=== PATIENT | female | born 1980 | race Hispanic/Latino ===

== ENCOUNTER → 2020-06-22 14:09 | Outpatient (CLI) | payer SELFPAY ==
--- NOTE | 2020-06-22 | DI.US.S_ITS ---
PROCEDURE: US ABDOMEN COMPLETE INDICATIONS: FLANK PAIN TECHNIQUE: Real-time scanning was performed of the abdominal and retroperitoneal organs, with image documentation. COMPARISON: None. FINDINGS: Liver: Liver is normal in size and homogeneous in echotexture. Gallbladder: No gallstones identified. Normal gallbladder wall. No pericholecystic fluid. Negative sonographic Mera sign. Biliary ducts: Intrahepatic bile ducts are non-dilated. Extrahepatic bile duct caliber measures 4.0 mm. Normal is 6-7 mm or less in diameter, or 10 mm or less post-cholecystectomy. Pancreas: Visualized portions of the pancreas are sonographically normal. Spleen: Spleen is normal in size and homogeneous in echotexture. Kidneys: Kidneys are normal in size and echotexture. Right kidney measures 10.6 cm long; left kidney measures 10.9 cm long. No hydronephrosis or nephrolithiasis. No solid masses. Small complex cyst involving the inferior pole of the right kidney measuring 7 mm. Aorta: Visualized aorta is normal in caliber at less than 3 cm. Iliacs: Proximal common iliac arteries are normal in caliber at less than 2.5 cm. IVC: Intrahepatic inferior vena cava is patent. Miscellaneous: No free abdominal fluid. IMPRESSION: 1. No source for right flank pain identified. 2. Bosniak 2 F complex cyst involving the inferior pole of the right kidney. 3 month follow-up ultrasound recommended. Dictated by: Brandon Kiran [facility] Interpreted: Parveen Mckeon MD on 06/22/2020 at 16:11 Approved by: Parveen Mckeon M.D. on 06/22/2020 at 17:12
--- NOTE | 2020-06-22 | DI.US.S_ITS ---
PROCEDURE: US PELVIC COMPLETE INDICATIONS: FLANK PAIN TECHNIQUE: Real-time scanning was performed of the pelvic organs, with image documentation. Additional endovaginal scanning was necessary due to incomplete visualization of the adnexal and endometrial structures by transabdominal scanning. COMPARISON: None. FINDINGS: Transabdominal scanning: Limited scanning through the kidneys shows no hydronephrosis. No pathologic free abdominal or pelvic fluid. Endovaginal scanning: Uterus: Uterus is normal in size at 8.0 x 4.3 x 3.8 cm. The endometrium measures 14 mm in combined thickness. Echogenic focus involving the posterior myometrium likely a small intramural fibroid measuring 4 mm. Ovaries: Ovary measures 3.2 x 1.7 x 2.6 cm on the right and 2.8 x 2.0 x 2.6 cm on the left. Complex mass involves the right ovary measuring 1.6 x 1.4 x 1.6 cm. Complex mass involves the left ovary measuring 1.7 x 1.3 x 1.7 cm. IMPRESSION: 1. Bilateral complex masses involving the ovaries likely representing small hemorrhagic ovarian cyst versus bilateral endometriomas. Recommend short-term follow-up pelvic ultrasound in 6-12 weeks to assess for temporal resolution. 2. Probable posterior 4 mm intramural fibroid. Dictated by: Brandon Kiran [facility] Interpreted: Parveen Mckeon MD on 06/22/2020 at 16:04 Approved by: Parveen Mckeon M.D. on 06/22/2020 at 17:12
== END ==
PROVIDERS: PCP Family Medicine; Referring Provider Family Medicine; Visit Provider Family Medicine
DX: R10.9 Unspecified abdominal pain (principal); N28.1 Cyst of kidney, acquired; N83.9 Noninflammatory disorder of ovary, fallopian tube and broad ligament, unspecified
CPT/HCPCS: 76700; 76830; 76856

== ENCOUNTER → 2020-08-07 09:46 | Outpatient (CLI) | payer SELFPAY ==
--- NOTE | 2020-08-07 | DI.US.S_ITS ---
PROCEDURE: US PELVIC COMPLETE INDICATIONS: ABDOMINAL PAIN TECHNIQUE: Real-time scanning was performed of the pelvic organs, with image documentation. Additional endovaginal scanning was necessary due to incomplete visualization of the adnexal and endometrial structures by transabdominal scanning. COMPARISON: [facility], , US ABDOMEN COMPLETE, 08/07/2020, 11:08. [facility], , US PELVIC COMPLETE, 06/22/2020, 15:12. FINDINGS: Transabdominal scanning: No pathologic free abdominal or pelvic fluid. On the accompanying abdominal ultrasound, the kidneys demonstrate a normal appearance. Endovaginal scanning: Uterus: Uterus is normal in size at 8.7 x 4.9 x 3.2 cm. The endometrium measures 8 mm in combined thickness. Along the right posterior aspect of the uterus, there is an intramural fibroid that measures 6 mm. A small amount of free fluid can be seen within the cervical canal. Incidental note is made of nabothian cysts. There is also a cervical region cyst seen with internal calcifications that measures up to 5 mm. Ovaries: The right ovary measures 3.4 x 1.5 x 1.4 cm. The left ovary measures 3.3 x 3.2 x 1.9 cm and demonstrates a complex cyst, with thickened, hypervascular martinez that measures 2.3 x 2 x 1.6 cm. On the prior pelvic ultrasound, this measured 1.7 x 1.3 x 1.7 cm. The ovaries otherwise have a normal sonographic appearance. No adnexal masses are seen. IMPRESSION: A left ovarian complex cyst is again seen, which is mildly increased in size compared to the prior examination. Please consider an additional ultrasound follow-up in 6-12 weeks for further evaluation. Dictated by: Kerwin Carvalho M.D. on 08/07/2020 at 12:31 Approved by: Kerwin Carvalho M.D. on 08/07/2020 at 12:34
--- NOTE | 2020-08-07 | DI.US.S_ITS ---
PROCEDURE: US ABDOMEN COMPLETE INDICATIONS: UNSPECIFIED ABDOMINAL PAIN TECHNIQUE: Real-time scanning was performed of the abdominal and retroperitoneal organs, with image documentation. COMPARISON: [facility], , US PELVIC COMPLETE, 08/07/2020, 11:30. [facility], US, US ABDOMEN COMPLETE, 06/22/2020, 14:55. FINDINGS: Liver: Liver is normal in size and homogeneous in echotexture. Gallbladder: The gallbladder is partly contracted at the time of this study, which limits its evaluation. No findings of gallstones or sludge are seen. The gallbladder wall is not thickened, measuring 3 mm or less. No specific pericholecystic fluid is seen. The sonographic Mera sign is negative. Biliary ducts: Intrahepatic bile ducts are non-dilated. Extrahepatic bile duct caliber measures 2-3 mm. Normal is 6-7 mm or less in diameter, or 10 mm or less post-cholecystectomy. Pancreas: Visualized portions of the pancreas are sonographically normal. Spleen: Spleen is normal in size and homogeneous in echotexture. Kidneys: Kidneys are normal in size and echotexture. Right kidney measures 10.1 cm long; left kidney measures 10.7 cm long. No hydronephrosis. No solid masses. At the inferior pole of the right kidney, there is cyst seen with internal calcification measures 1.2 x 1 x 0.7 cm. This is increased in size compared to prior, when measured 0.7 x 0.7 x 0.6 cm. Aorta: Visualized aorta is normal in caliber at less than 3 cm. Iliacs: Not seen, obscured by overlying bowel gas. IVC: Intrahepatic inferior vena cava is patent. Miscellaneous: No free abdominal fluid. IMPRESSION: Interval increase in size of the complicated cyst at the inferior pole of the right kidney. A dedicated renal mass protocol CT (without and with contrast) is now recommended for further evaluation, if clinically appropriate. Dictated by: Kerwin Carvalho M.D. on 08/07/2020 at 12:27 Approved by: Kerwin Carvalho M.D. on 08/07/2020 at 12:29
== END ==
PROVIDERS: PCP Family Medicine; Referring Provider Family Medicine; Visit Provider Family Medicine
DX: R10.9 Unspecified abdominal pain (principal); N28.1 Cyst of kidney, acquired; D25.1 Intramural leiomyoma of uterus; N83.292 Other ovarian cyst, left side
CPT/HCPCS: 76700; 76856

== ENCOUNTER → 2020-08-17 11:20 | Outpatient (CLI) | payer SELFPAY ==
--- NOTE | 2020-08-17 12:14 | DI.CT.S_ITS ---
PROCEDURE: CT ABDOMEN PELVIS WO/W CON INDICATIONS: CYST OF KIDNEY, ACQUIRED TECHNIQUE: After the administration of oral contrast, 5 mm thick sections acquired from the diaphragms to the iliac crests. After the administration of intravenous contrast, 5 mm thick sections acquired from the diaphragms to the symphysis. 5 mm thick coronal and sagittal reformats were acquired. For radiation dose reduction, the following was used: automated exposure control, adjustment of mA and/or kV according to patient size. COMPARISON: [facility], US, US ABDOMEN COMPLETE, 08/07/2020, 11:08. [facility], US, US PELVIC COMPLETE, 08/07/2020, 11:30. FINDINGS: Image quality: Excellent. ABDOMEN: Lung bases: Lung bases are clear. Heart size is normal. Solid organs: Liver is normal in size and enhancement. Gallbladder appears normal . Biliary system is non-dilated. Pancreas enhances normally. Spleen is normal in size and enhancement. No adrenal nodules. Both kidneys are normal in size. No hydronephrosis or nephrolithiasis. Note is made of a 7 mm cyst at the medial cortex of the lower 3rd of the right kidney, and no solid mass lesion is found that would correlate with the area of prior ultrasound concern open (although perhaps this cyst in combination with normal adjacent collecting system could have produced a false positive sense of complex mass in that area). Bowel and peritoneum: Stomach, small and large bowel loops are normal in caliber and wall thickness. No free fluid or air. Nodes and vessels: No retroperitoneal or mesenteric adenopathy by size criteria. Aorta and inferior vena are normal in caliber. Miscellaneous: No ventral hernias. PELVIS: Genitourinary: Bladder wall thickness is normal. Miscellaneous: No inguinal hernias or adenopathy. Bones: No suspicious bony lesions. No vertebral body compression fractures. IMPRESSION: There is a small 7 mm maximal dimension lower 3rd right renal cortical cyst, requiring no follow-up. There is no suspicion for solid mass lesion. The prior ultrasound study appears to have combined collecting system and the cyst producing a complex appearing structure that is a false-positive for concern for neoplasm. Dictated by: Parker Howe M.D. on 08/17/2020 at 15:58 Approved by: Parker Howe M.D. on 08/17/2020 at 16:04
== END ==
PROVIDERS: PCP Family Medicine; Referring Provider Family Medicine; Visit Provider Family Medicine
DX: N28.1 Cyst of kidney, acquired (principal); N83.8 Other noninflammatory disorders of ovary, fallopian tube and broad ligament
CPT/HCPCS: 74178; Q9967

== ENCOUNTER → 2020-12-21 12:03 | Outpatient (CLI) | payer SELFPAY ==
--- NOTE | 2020-12-21 | DI.US.S_ITS ---
PROCEDURE: US PELVIC COMPLETE INDICATIONS: OVARIAN CYST TECHNIQUE: Real-time scanning was performed of the pelvic organs, with image documentation. Additional endovaginal scanning was necessary due to incomplete visualization of the adnexal and endometrial structures by transabdominal scanning. COMPARISON: [facility], CT, CT ABDOMEN PELVIS WO/W CON, 08/17/2020, 11:50. [facility], US, US PELVIC COMPLETE, 06/22/2020, 15:12. [facility], , US PELVIC COMPLETE, 08/07/2020, 11:30. FINDINGS: Uterus: Uterus is normal in size at 7.4 x 3.1 by 4.2 cm. Note is made of prominent vessels along the surface of the uterus. The endometrium measures 3 mm in combined thickness. There is a right mid uterine intramural fibroid seen that measures up to 4 mm. Incidental note is made of nabothian cysts. Ovaries: The right ovary measures 4.1 x 2.5 x 1.3 cm. The left ovary measures 4 x 2.3 x 2.1 cm. The ovaries have a normal sonographic appearance. No adnexal masses are seen. Normal appearing arterial waveforms are confirmed to each ovary. A prominent left adnexal vein is incidentally noted, which is not significantly change with Valsalva maneuver. Other: No pathologic free abdominal or pelvic fluid. IMPRESSION: There is been interval resolution of the previously seen ovarian cyst. A prominent left adnexal vein is noted. Prominent vessels are also seen along the surface of the uterus. The clinical significance of this is uncertain. Dictated by: Kerwin Carvalho M.D. on 12/21/2020 at 13:00 Approved by: Kerwin Carvalho M.D. on 12/21/2020 at 13:03
== END ==
PROVIDERS: PCP Family Medicine; Referring Provider Family Medicine; Visit Provider Family Medicine
DX: N83.201 Unspecified ovarian cyst, right side (principal); N83.202 Unspecified ovarian cyst, left side; D25.1 Intramural leiomyoma of uterus; N88.8 Other specified noninflammatory disorders of cervix uteri
CPT/HCPCS: 76830; 76856